=== PATIENT | female | born 1955 | race Caucasian/White ===

== ENCOUNTER 2023-01-31 09:10 | Outpatient (CLI) | payer MEDICARE, BC, SELFPAY ==
[2023-01-31 09:52] VITALS: BP 135/89; PULSE 87; RESP 14; TEMP 36.3; O2SAT 96; BMI 26.2
[2023-01-31 09:56] LABS: Estimated CRCL calculation 52 ml/min; Estimated Glomerular Filt Rate 60
[2023-01-31] MEDS: SODIUM CHLORIDE 0.9% IVPB (10:35)
[2023-01-31] MEDS: ZOLEDRONIC ACID IVPB (10:35)
--- NOTE | 2023-01-31 11:03 | PC.NURSE ---
Patient here for Zometa infusion. Creatinine drawn and reviewed ok for 4 mg dose. IV Zometa infusion administered. SEE MAR. Tolerated well. Safe exit of hospital self /ambulatory.
== END 2023-01-31 09:11 | disposition home or self-care (01) ==
PROVIDERS: PCP Family Medicine; Visit Provider Internal Medicine Hematology & Oncology
DX: M85.80 Other specified disorders of bone density and structure, unspecified site (principal)
CPT/HCPCS: 36415; 82565; 96365; J3489

== ENCOUNTER 2023-08-09 09:36 | Outpatient (CLI) | payer MEDICARE, BC, SELFPAY ==
[2023-08-09 10:00] LABS: Estimated Glomerular Filt Rate > 60
[2023-08-09 10:05] VITALS: BP 101/67; PULSE 84; RESP 18; TEMP 35.9; O2SAT 95; BMI 26.4
--- NOTE | 2023-08-09 10:09 | PC.NURSE ---
Patient ambulated to room with lab without difficulty. Oriented to room and call light system. Explained to patient that we were waiting on labs to decide treatment.
[2023-08-09] MEDS: ZOLEDRONIC ACID 4 MG/100 ML 100 ML 400 MG IVPB (10:42)
[2023-08-09 11:02] VITALS: BP 102/71; PULSE 73; RESP 16; TEMP 36.1; O2SAT 95
== END 2023-08-09 11:15 | disposition home or self-care (01) ==
PROVIDERS: PCP Family Medicine
DX: M85.80 Other specified disorders of bone density and structure, unspecified site (principal)
CPT/HCPCS: 36415; 82565; 96365; 96374; J3489

== ENCOUNTER 2024-02-22 08:42 | Outpatient (CLI) | payer MEDICARE, BC, SELFPAY ==
[2024-02-22 09:11] LABS: Estimated Glomerular Filt Rate 51
[2024-02-22 09:18] VITALS: BP 124/74; PULSE 93; RESP 18; TEMP 36.6; O2SAT 95
[2024-02-22 09:21] VITALS: BMI 25.9
[2024-02-22] MEDS: SODIUM CHLORIDE 0.9% IVPB (09:51)
[2024-02-22] MEDS: ZOLEDRONIC ACID IVPB (09:51)
== END 2024-02-22 08:43 | disposition home or self-care (01) ==
PROVIDERS: PCP Family Medicine; Visit Provider Internal Medicine Hematology & Oncology
DX: M85.80 Other specified disorders of bone density and structure, unspecified site (principal)
CPT/HCPCS: 36415; 82565; 96365; J3489

== ENCOUNTER 2024-08-29 09:03 | Outpatient (CLI) | payer MEDICARE, BC, SELFPAY ==
[2024-08-29 09:10] VITALS: BMI 25.9
[2024-08-29 09:28] LABS: Estimated CRCL calculation 53 ml/min; Estimated Glomerular Filt Rate > 60
[2024-08-29 09:30] VITALS: BP 122/74; PULSE 76; RESP 14; TEMP 36.4; O2SAT 97
[2024-08-29] MEDS: SODIUM CHLORIDE 0.9% IVPB (10:20)
[2024-08-29] MEDS: ZOLEDRONIC ACID IVPB (10:20)
--- NOTE | 2024-08-29 11:01 | PC.NURSE ---
Only blood work need was creatinine/creatinine clearance. No cbc ordered or needed- couldn't bypass that on APR without checking yes. Tolerated Zoledronic acid infusion well.
[2024-08-29 11:03] VITALS: BP 111/67; PULSE 70; RESP 14; O2SAT 97
== END 2024-08-29 09:04 | disposition home or self-care (01) ==
PROVIDERS: PCP Family Medicine; Visit Provider Internal Medicine Hematology
DX: M85.80 Other specified disorders of bone density and structure, unspecified site (principal)
CPT/HCPCS: 36415; 82565; 96365; J3489